=== PATIENT | female | born 1945 | race Caucasian/White ===

== ENCOUNTER 2018-11-04 13:15 | Observation (INO) | payer MEDICARE ==
[~2018-11-04] VITALS: Ht 162.6 cm; Wt 63.6 kg
[2018-11-04 13:57] LABS: BASOPHILS # (AUTO) 0.03 x10^3/uL (0-0.1); BASOPHILS % (AUTO) 0 % (0-1); EOSINOPHILS # (AUTO) 0.02 x10^3/uL (0-0.4); EOSINOPHILS % (AUTO) 0 % (1-7); LYMPHOCYTES % (AUTO) 25 % (22-44); MD NO; MEAN CORPUSCULAR HEMOGLOBIN 31.8 pg (27.0-34.8); MEAN CORPUSCULAR HGB CONC 33.1 g/dL (32.4-35.8); MEAN CORPUSCULAR VOLUME 96.2 fL (80-100); MEAN PLATELET VOLUME 6.4 fL (7.4-10.4); MONOCYTES # (AUTO) 0.62 x10^3/uL (0.2-0.8); MONOCYTES % (AUTO) 7 % (2-9); NEUTROPHILS % (AUTO) 68 % (42-75); PLATELET COUNT 384 x10^3/uL (130-400); RED BLOOD COUNT 4.06 x10^6/uL (3.82-5.3); RED CELL DISTRIBUTION WIDTH 13.8 % (9.6-15.2)
[2018-11-04 14:07] LABS: ALBUMIN 4.2 g/dL (3.4-5.0); ANION GAP 7 mmol/L (5-15); CALCIUM 9.6 mg/dL (8.5-10.1); CHLORIDE 108 mmol/L (98-107)
--- NOTE | 2018-11-04 14:11 | NUR ---
[employer] ANALYST: PT TO ROOM FROM [facility]. UPRIGHT STEADY GAIT
[2018-11-04 14:20] LABS: ALANINE AMINOTRANSFERASE 18 U/L (12-78); ALKALINE PHOSPHATASE 84 U/L (45-117); BILIRUBIN,TOTAL 0.4 mg/dL (0.2-1.0); CREATININE 0.93 mg/dL (0.55-1.02); TOTAL PROTEIN 7.4 g/dL (6.4-8.2)
--- NOTE | 2018-11-04 14:41 | NUR ---
ASSUMED CARE. PT. IS A & O X 4 WITH C/O RECTAL BLEEDING AFTER HAVING A COLONOSCOPY DONE YESTERDAY. PT. HAS THE CP MONITOR IN PLACE. PT. DENIES C/O PAIN. PT.'S ABD. IS SOFT AND SLIGHTLY TENDER ON THE LEFT SIDE. PT.'S LUNGS ARE CTA. MM ARE PINK AND MOIST WITH PULSES +2 THROUGHOUT. PT. HAS THE SIDERAILS UP X 2 AND THE CALL LIGHT IN PLACE.
[2018-11-04] MEDS ORDERED: D5%-0.45NACL+KCL 20MEQ 1,000 ML IV SCH (15:21)
[2018-11-04] MEDS ORDERED: morphine SULFATE 10 MG/ML, 1ML IVPush PRN (15:30)
[2018-11-04] MEDS ORDERED: TIZANIDINE 4MG TABLET PO PRN (15:30)
[2018-11-04] MEDS ORDERED: ACETAMINOPHEN 325 MG TABLET PO PRN (15:30)
[2018-11-04] MEDS ORDERED: hydrALAzine 20 MG/ML, 1ML IVPush PRN (15:30)
[2018-11-04] MEDS ORDERED: ONDANSETRON 2MG/ML, 2ML IVPush PRN (15:30)
[2018-11-04] MEDS ORDERED: GOLYTELY 4,000ML ORAL.SOL PO ONE (15:30)
--- NOTE | 2018-11-04 15:53 | NUR ---
REPORT CALLED TO THE FLOOR BY NOEMÍ GLASER. PT. IS READY FOR TRANSPORT.
[2018-11-04] MEDS ORDERED: ALPR0.5T5 PO (16:21)
[2018-11-04] MEDS ORDERED: MELO15TA24 PO (16:21)
[2018-11-04] MEDS ORDERED: AMLO10TA8 PO (16:21)
[2018-11-04] MEDS ORDERED: TIZA4CAP PO (16:21)
[2018-11-04 19:35] VITALS: BP 155/76
[2018-11-04] MEDS: MOVIPREP POWDER 1 PREP KIT PO SCH (21:26)
[2018-11-05 02:43] VITALS: BP 124/69
[2018-11-05 05:26] LABS: BASOPHILS # (AUTO) 0.03 x10^3/uL (0-0.1); BASOPHILS % (AUTO) 0 % (0-1); EOSINOPHILS # (AUTO) 0.01 x10^3/uL (0-0.4); EOSINOPHILS % (AUTO) 0 % (1-7); LYMPHOCYTES # (AUTO) 1.56 x10^3/uL (1-3.4); LYMPHOCYTES % (AUTO) 18 % (22-44); MD NO; MEAN CORPUSCULAR HEMOGLOBIN 31.6 pg (27.0-34.8); MEAN CORPUSCULAR HGB CONC 32.8 g/dL (32.4-35.8); MEAN CORPUSCULAR VOLUME 96.6 fL (80-100); MEAN PLATELET VOLUME 6.6 fL (7.4-10.4); MONOCYTES # (AUTO) 0.52 x10^3/uL (0.2-0.8); MONOCYTES % (AUTO) 6 % (2-9); NEUTROPHILS # (AUTO) 6.36 x10^3/uL (1.8-6.8); NEUTROPHILS % (AUTO) 75 % (42-75); PLATELET COUNT 326 x10^3/uL (130-400); RED BLOOD COUNT 3.62 x10^6/uL (3.82-5.3); RED CELL DISTRIBUTION WIDTH 13.3 % (9.6-15.2)
[2018-11-05 05:38] LABS: ANION GAP 4 mmol/L (5-15); CALCIUM 8.9 mg/dL (8.5-10.1); CHLORIDE 115 mmol/L (98-107)
[2018-11-05 05:39] LABS: CREATININE 0.62 mg/dL (0.55-1.02)
[2018-11-05] MEDS: MOVIPREP POWDER 1 PREP KIT PO SCH (06:00)
[2018-11-05 08:57] VITALS: BP 136/80
[2018-11-05] MEDS ORDERED: PROPOFOL 10 MG/ML, 20ML ONE (09:10)
[2018-11-05] MEDS ORDERED: FENTANYL PF 100 MCG/2ML IV PRN (10:30)
[2018-11-05] MEDS ORDERED: LABETALOL 5MG/ML, 20ML IV PRN (10:30)
[2018-11-05] MEDS ORDERED: OXYcodone 5 MG/5 ML ORAL.SOL UDC PO PRN (10:30)
[2018-11-05] MEDS ORDERED: ALBUTEROL SULFATE 2.5 MG/3 ML NPPB PRN (10:30)
[2018-11-05] MEDS ORDERED: PROMETHAZINE 25 MG/ML, 1ML IV PRN (10:30)
[2018-11-05] MEDS ORDERED: ACETAMINOPHEN 325 MG TABLET PO PRN (10:30)
[2018-11-05] MEDS ORDERED: HYDROmorphone 2 MG/ML, 1ML IVPush PRN (10:30)
[2018-11-05] MEDS ORDERED: KETOROLAC 30 MG/1 ML IV PRN (10:30)
[2018-11-05] MEDS ORDERED: MEPERIDINE/PF 25MG/0.5ML IVPush PRN (10:30)
[2018-11-05] MEDS ORDERED: hydrALAzine 20 MG/ML, 1ML IV PRN (10:30)
[2018-11-05] MEDS ORDERED: DIAZEPAM 5 MG/ML, 2ML IVPush PRN (10:30)
[2018-11-05 13:25] VITALS: BP 138/67
== END 2018-11-05 14:38 | disposition home or self-care (01) ==
LOC: ED 15:08 → EDIP 15:21 → 4NOR 16:08 → DCLOUNGE 11-05 14:28
PROVIDERS: ADMIT Hospitalist; ATTEND Hospitalist
DX: D12.2 Benign neoplasm of ascending colon (principal); D12.3 Benign neoplasm of transverse colon; D12.5 Benign neoplasm of sigmoid colon; E87.0 Hyperosmolality and hypernatremia; I10 Essential (primary) hypertension; K57.90 Diverticulosis of intestine, part unspecified, without perforation or abscess without bleeding; K64.8 Other hemorrhoids; K92.2 Gastrointestinal hemorrhage, unspecified; N20.0 Calculus of kidney; G89.29 Other chronic pain; M51.16 Intervertebral disc disorders with radiculopathy, lumbar region; Z79.82 Long term (current) use of aspirin; Z79.899 Other long term (current) drug therapy
CPT/HCPCS: 36415; 45380; 45385; 74021; 80048; 80053; 85014; 85018; 85025; 88305; 96360; 96361; 99284; G0378; J2704; J3480